=== PATIENT | female | born 1995 | race African-American/Black ===

== ENCOUNTER 2018-02-20 18:01 | Emergency (ER) | payer OTHER ==
--- NOTE | 2018-02-20 19:23 | ER Document Report ---
ED Medical Screen (RME) - General Chief Complaint: Abdominal Pain Stated Complaint: ABDOMINAL PAIN Time Seen by Provider: 02/20/18 19:18 Mode of Arrival: Ambulatory Information source: Patient TRAVEL OUTSIDE OF THE [place] IN LAST 30 DAYS: No - HPI Onset: Just prior to arrival Onset/Duration: Sudden Quality of pain: Cramping, Sharp Severity: Severe Associated Symptoms: Nausea. denies: Vomiting Exacerbated by: Denies Relieved by: Denies, Other - SPONTANEOUSLY IMPROVED W/ TIME. Similar symptoms previously: No Recently seen / treated by doctor: Yes - HAD THER. AB. 3 WKS AGO - Related Data Allergies/Adverse Reactions: No Known Allergies Allergy (Unverified 02/20/18 18:04) Past Medical History - General Information source: Patient - Social History Chew tobacco use (# tins/day): No Frequency of alcohol use: None Drug Abuse: None Lives with: Spouse/Significant other - Past Medical History Cardiac Medical History: Reports: None Pulmonary Medical History: Reports: None EENT Medical History: Reports: None Neurological Medical History: Reports: None Endocrine Medical History: Reports: None Renal/ Medical History: Reports: None. Denies: Hx Peritoneal Dialysis Malignancy Medical History: Reports: None GI Medical History: Reports: None Musculoskeltal Medical History: Reports None Psychiatric Medical History: Reports: None Surgical Hx: Negative Review of Systems - Review of Systems Constitutional: No symptoms reported EENT: No symptoms reported Cardiovascular: No symptoms reported Respiratory: No symptoms reported Gastrointestinal: See HPI Genitourinary: No symptoms reported Female Genitourinary: Other - HAS CONTINUED TO HAVE MILD CRAMPING AND SOME BLEEDING SINCE Ab. Musculoskeletal: No symptoms reported Skin: No symptoms reported Neurological/Psychological: No symptoms reported Physical Exam - Vital signs Vitals: Temp Pulse Resp BP Pulse Ox 98.5 F 77 16 119/73 99 02/20/18 18:12 02/20/18 18:12 02/20/18 18:12 02/20/18 18:12 02/20/18 18:12 Interpretation: Normal. No: Tachycardic, Tachypneic, Febrile - General General appearance: Appears well, Alert In distress: None - HEENT Head: Normocephalic Eyes: Normal Conjunctiva: Normal Ears: Normal Nasal: Normal Mouth/Lips: Normal Mucous membranes: Normal - Respiratory Respiratory status: No respiratory distress - Cardiovascular Rhythm: Regular - Abdominal Inspection: Normal Distension: No distension - Back Back: Normal - Extremities General upper extremity: Normal inspection General lower extremity: Normal inspection - Neurological Neuro grossly intact: Yes Cognition: Normal Orientation: AAOx4 - Psychological Associated symptoms: Normal affect, Normal mood - Skin Skin Temperature: Warm Skin Moisture: Dry Skin Color: Normal Skin Turgor: Elastic Course - Vital Signs Vital signs: Temp Pulse Resp BP Pulse Ox 98.5 F 77 16 119/73 99 02/20/18 18:12 02/20/18 18:12 02/20/18 18:12 02/20/18 18:12 02/20/18 18:12
[2018-02-20 20:33] LABS: ABSOLUTE BASOPHILS # (AUTO) 0.1 10^3/uL (0.0-0.2); ABSOLUTE EOSINOPHILS # (AUTO) 0.2 10^3/uL (0.0-0.6); ABSOLUTE LYMPHOCYTES (AUTO) 1.8 10^3/uL (0.5-4.7); ABSOLUTE MONOCYTES (AUTO) 0.6 10^3/uL (0.1-1.4); ABSOLUTE NEUT (AUTO) 4.5 10^3/uL (1.7-8.2); EOSINOPHILS % (AUTO) 2.2 % (0-6); HEMATOCRIT 28.3 % (36.0-47.0); HEMOGLOBIN 9.1 g/dL (12.0-15.5); LYMPHOCYTES % (AUTO) 25.9 % (13-45); MEAN CORPUSCULAR HGB CONC 32.1 g/dL (32.0-36.0); MEAN CORPUSCULAR VOLUME 78 fl (80-97); MONOCYTES % (AUTO) 7.8 % (3-13); PLATELET COUNT 314 10^3/uL (150-450); RED BLOOD COUNT 3.64 10^6/uL (3.72-5.28); SEGMENTED NEUTROPHILS % (AUTO) 63.1 % (42-78); TOTAL CELLS COUNTED % (AUTO) 100 %; WHITE BLOOD COUNT 7.1 10^3/uL (4.0-10.5)
[2018-02-20 20:43] LABS: APPEARANCE,URINE CLOUDY; BILIRUBIN,URINE SMALL (NEGATIVE); COLOR,URINE AMBER; GLUCOSE, URINE NEGATIVE (NEGATIVE); KETONES,URINE TRACE mg/dL (NEGATIVE); LEUKOCYTE ESTERASE,URINE SMALL (NEGATIVE); NITRITE,URINE NEGATIVE (NEGATIVE); PROTEIN,URINE 100 mg/dL (NEGATIVE)
[2018-02-20 20:50] LABS: ALANINE AMINOTRANSFERASE 20 U/L (9-52); ALBUMIN 4.6 g/dL (3.5-5.0); ALKALINE PHOSPHATASE 58 U/L (38-126); ANION GAP 15 (5-19); ASPARTATE AMINO TRANSFERASE 24 U/L (14-36); BILIRUBIN,DIRECT 0.2 mg/dL (0.0-0.4); BILIRUBIN,TOTAL 0.4 mg/dL (0.2-1.3); BLOOD UREA NITROGEN 7 mg/dL (7-20); CALCIUM 9.3 mg/dL (8.4-10.2); CARBON DIOXIDE 25 mmol/L (22-30); CHLORIDE 104 mmol/L (98-107); GLUCOSE 94 mg/dL (75-110); LIPASE 56.3 U/L (23-300); POTASSIUM 3.8 mmol/L (3.6-5.0); SODIUM 144.4 mmol/L (137-145); TOTAL PROTEIN 8.3 g/dL (6.3-8.2)
--- NOTE | 2018-02-20 21:03 | ER Document Report ---
ED GI/ - General Chief Complaint: Abdominal Pain Stated Complaint: ABDOMINAL PAIN Time Seen by Provider: 02/20/18 19:18 Mode of Arrival: Ambulatory Information source: Patient TRAVEL OUTSIDE OF THE [place] IN LAST 30 DAYS: No - HPI Patient complains to provider of: Abdominal pain Notes: 02/20/18 21:00 Patient is here with complaints of abdominal cramping. The patient is a history of being . She was approximately 9 weeks when she had an 3 weeks ago. She states that she was given a pill to take to cause the . There was no surgical intervention or D&C. States that since that time she has been having intermittent abdominal cramping with bleeding. States that she had some slightly more severe cramping last week and was seen at [facility] and had an ultrasound done. She states that she had to call to get the results and was told that she had an incomplete . States that earlier today she had some severe lower abdominal pain. She denies any pain currently. She denies any nausea, vomiting, diarrhea. No dysuria or hematuria. No rash. No fever. No chest pain or shortness of breath. She denies any other complaints at this time. - Related Data Allergies/Adverse Reactions: No Known Allergies Allergy (Unverified 02/20/18 18:04) Past Medical History - General Information source: Patient - Social History Smoking Status: Never Smoker Chew tobacco use (# tins/day): No Frequency of alcohol use: None Drug Abuse: None Lives with: Spouse/Significant other Family History: Reviewed & Not Pertinent Patient has suicidal ideation: No Patient has homicidal ideation: No - Past Medical History Cardiac Medical History: Reports: None Pulmonary Medical History: Reports: None EENT Medical History: Reports: None Neurological Medical History: Reports: None Endocrine Medical History: Reports: None Renal/ Medical History: Reports: None. Denies: Hx Peritoneal Dialysis Malignancy Medical History: Reports: None GI Medical History: Reports: None Musculoskeltal Medical History: Reports None Psychiatric Medical History: Reports: None Surgical Hx: Negative Review of Systems - Review of Systems -: Yes All other systems reviewed and negative Physical Exam - Vital signs Vitals: Temp Pulse Resp BP Pulse Ox 98.5 F 77 16 119/73 99 02/20/18 18:12 02/20/18 18:12 02/20/18 18:12 02/20/18 18:12 02/20/18 18:12 - Notes Notes: GENERAL: alert, cooperative, nontoxic, no distress. HEAD: normocephalic, atraumatic EYES: conjunctiva pink without discharge, no external redness or swelling. EARS: no external swelling, no external redness NOSE: atraumatic, no external swelling MOUTH/THROAT: mucous membranes moist and pink, posterior pharynx without erythema, swelling, exudate. No trismus or drooling. NECK: soft, supple, full range of motion, no meningismus. CHEST: no distress, lungs clear and equal throughout. No wheezing, rales, rhonchi. CARDIAC: regular rate and rhythm, no murmur, normal capillary refill, normal pulses. No peripheral edema noted. ABDOMEN: Soft, nontender. BACK: full range of motion, no CVA tenderness. EXTREMITIES: full range of motion of all extremities. No redness, no swelling. NEURO: alert and oriented x 3, no focal deficits, full range of motion of all extremities. PYSCH: appropriate mood, affect. Patient is cooperative. SKIN: pink, warm, dry, no rash. : Female manager of patient at the bedside. No external lesions. Cervical office is open. There is mucus and small amount of blood noted. Do not appreciate any products of conception at this time. No cervical motion tenderness or adnexal tenderness or masses. Course - Re-evaluation Re-evalutation: 02/20/18 23:11 Patient is nontoxic appearing with stable vitals. She is here with complaints of abdominal cramping. Patient states that she was 9 weeks 3 weeks ago when she had an with [facility] in [place]. She was given medications for this. States since that time she has had some intermittent cramping and bleeding. Today she had some worsening cramping and she was concerned. She has no abdominal tenderness on exam. Pelvic exam shows no obvious products of conception. No cervical motion tenderness. Lab work is unremarkable. She has normal white count, mild anemia with a hemoglobin of 9.1. Her hCG is just over 1000. Ultrasound shows possible products of conception. I discussed the case with Dr. Goodman, [employer] agricultural education professor. He recommends that the patient follow back up in [place] for further quant testing to ensure that her quant is going to 0. She can follow-up in his office if she is having difficulty following back up in [place]. She should return the emergency department for severe worsening pain, high fever, severe bleeding, or for any further concerns. The patient's emergency department workup and current diagnosis were explained to the patient and or family. Follow-up instructions were provided. Medications if prescribed were discussed. Instructions for when to return to the emergency department including specific worrisome symptoms were discussed with the patient and/or family. - Vital Signs Vital signs: Temp Pulse Resp BP Pulse Ox 98.5 F 77 16 119/73 99 02/20/18 18:12 02/20/18 18:12 02/20/18 18:12 02/20/18 18:12 02/20/18 18:12 - Laboratory Result Diagrams: 02/20/18 20:20 02/20/18 20:20 Laboratory results interpreted by me: 02/20/18 02/20/18 02/20/18 20:20 20:20 20:20 RBC 3.64 L Hgb 9.1 L Hct 28.3 L MCV 78 L MCH 25.0 L RDW 17.0 H Total Protein 8.3 H Beta HCG, Quant 1032.70 H Urine Protein 100 H Urine Ketones TRACE H Urine Blood SMALL H Urine Bilirubin SMALL H Urine Urobilinogen 4.0 H Ur Leukocyte Esterase SMALL H - Diagnostic Test Radiology reviewed: Image reviewed, Reports reviewed - Possible retained products of conception Discharge - Discharge Clinical Impression: Incomplete Condition: Stable Disposition: HOME, SELF-CARE Instructions: Miscarriage ([facility]) Additional Instructions: Tylenol Motrin if needed for pain. Drink plenty of fluids. Follow-up in [place] to ensure that your hormone level goes back to 0. Today it was 1037. Follow-up sooner for severe pain, persistent vomiting, significant bleeding, high fever, or for any further concerns. Referrals: KEN GOODMAN MD [ACTIVE STAFF] - Follow up as needed
[2018-02-20 21:56] LABS: RBCS (WET MOUNT) 2+ RBCS SEEN; T.VAGINALIS (WET MOUNT) NO TRICHOMONAS SEEN; WBCS (WET MOUNT) 1+ WBCS SEEN; YEAST (WET MOUNT) NO YEAST SEEN
--- NOTE | 2018-02-20 22:21 | RADIOLOGY REPORT (SQ) ---
EXAM DESCRIPTION: U/S NON OB PEL TV W/DOPPLER COMPLETED DATE/TIME: 02/20/2018 10:12 pm REASON FOR STUDY: recent , pelvic pain COMPARISON: None. TECHNIQUE: Dynamic and static grayscale images acquired of the pelvis via transvaginal approach and recorded on PACS. Additional selected color Doppler and spectral images recorded. LIMITATIONS: None. FINDINGS: UTERUS: Contour normal. No mass. ENDOMETRIAL STRIPE: Thickened. Heterogeneous material in the endometrial canal. CERVIX: 2.4 cm. RIGHT ADNEXUM: No abnormal masses. RIGHT OVARY AND DOPPLER: Normal size, no worrisome masses. Normal arterial vascular flow without evid ence for torsion. LEFT ADNEXUM: No abnormal masses. LEFT OVARY AND DOPPLER: Normal size, no worrisome masses. Normal arterial vascular flow without evide nce for torsion. FREE FLUID: None noted. OTHER: No other significant finding. MEASUREMENTS: UTERUS: 9 x 6.4 x 4.4 cm ENDOMETRIAL STRIPE: 1.7 cm RIGHT OVARY: 3.2 x 2.1 x 2.5 cm LEFT OVARY: 3.2 x 1.5 x 1.9 cm IMPRESSION: The appearance of the endometrial canal is suggestive of retained products of conception . TECHNICAL DOCUMENTATION: JOB ID: [id number] [employer]- All Rights Reserved Reading location - IP/workstation name: [email or web address]
[2018-02-20 23:23] LABS: CHLAM PCR NOT DETECTED (NOT DETECT); GON PCR NOT DETECTED (NOT DETECT)
[2018-02-20 23:42] VITALS: BP 121/75
== END 2018-02-20 23:41 | disposition home or self-care (01) ==
LOC: ER 18:01
DX: O04.89 (Induced) termination of pregnancy with other complications (principal); R10.30 Lower abdominal pain, unspecified; N93.9 Abnormal uterine and vaginal bleeding, unspecified
CPT/HCPCS: 36415; 76830; 80053; 81001; 83690; 84702; 85025; 87210; 87491; 87591; 93976; 99284